=== PATIENT | male | born 1955 | race Two or more races ===

== ENCOUNTER → 2017-09-21 | Outpatient (CLI) | payer OTHER ==
--- NOTE | 2017-09-21 13:46 | Diagnostic Imaging Report ---
PROCEDURE:X-RAY RIGHT KNEE, THREE OR MORE VIEWS COMPARISON:None. INDICATIONS:RIGHT KNEE PAIN, DENIES INJURY FINDINGS: The bones are well-mineralized. There are no fractures, subluxations, lytic or blastic lesions. There is no evidence of a joint effusion. Mild to degenerative changes in the medial and lateral compartments with moderate to severe degenerative changes in the patellofemoral compartment. There are loose joint bodies identified. No suprapatellar joint effusion. 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 No acute osseous abnormality. Dictated by: Robin Torres M.D. on 09/21/2017 at 13:48 Electronically approved by: Robin Torres M.D. on 09/21/2017 at 13:48
--- NOTE | 2017-09-21 13:48 | Diagnostic Imaging Report ---
PROCEDURE:WRIST COMPLETE BILATERAL TECHNIQUE:3 views of bilateral wrists INDICATION:Chronic wrist pain and chronic arthritis. COMPARISON:None. FINDINGS: Mild degenerative changes in bilateral radiocarpal joints. Slight widening/subluxation of the first carpometacarpal joints bilaterally, left greater than right related to arthritis. No fractures or dislocations. CONCLUSION: Mild degenerative changes in bilateral radiocarpal and first carpal metacarpal joints. Dictated by: Robin Torres M.D. on 09/21/2017 at 13:50 Electronically approved by: Robin Torres M.D. on 09/21/2017 at 13:50
--- NOTE | 2017-09-21 13:50 | Diagnostic Imaging Report ---
PROCEDURE:HAND THREE VIEWS BILATERAL TECHNIQUE:3 views of bilateral hands INDICATION:Chronic hand pain. Chronic arthritis. COMPARISON:None. FINDINGS: Mild degenerative changes in bilateral first interphalangeal and first MCP joints, right worse than left. Mild subluxation of bilateral first carpal metacarpal joint, left greater than right. Single lucent lesion in bilateral lunate bone. CONCLUSION: Focal degenerative changes centered in the first digit bilaterally. Focal lucent lesion in bilateral lunate bone. This can be seen in inflammatory arthritis. Dictated by: Robin Torres M.D. on 09/21/2017 at 13:52 Electronically approved by: Robin Torres M.D. on 09/21/2017 at 13:52
== END ==
LOC: RAD 12:34
PROVIDERS: ATTEND Internal Medicine
DX: M25.561 Pain in right knee (principal); M25.532 Pain in left wrist; M25.531 Pain in right wrist; M79.642 Pain in left hand; M79.641 Pain in right hand

== ENCOUNTER 2019-02-12 09:07 | Outpatient (RCR) | payer OTHER | END 2019-03-08 | LOC: OT 09:07 | PROVIDERS: ATTEND Orthopaedic Surgery | DX: G56.01 Carpal tunnel syndrome, right upper limb (principal); G56.81 Other specified mononeuropathies of right upper limb; G56.21 Lesion of ulnar nerve, right upper limb; R53.1 Weakness | CPT/HCPCS: 97139 ==